=== PATIENT | female | born 1990 | race Caucasian/White ===

== ENCOUNTER 2020-08-13 12:16 | Inpatient (IN) | payer BC, OTHER ==
[2020-08-13 12:22] VITALS: BMI 29.2
[2020-08-13] MEDS ORDERED: SODIUM CHLORIDE 1,000 ML IV STA (12:35)
[2020-08-13] MEDS ORDERED: ACETAMINOPHEN 1000 MG/100 ML VIAL (NON FORMULARY) IVPB ONE (12:37)
[2020-08-13] MEDS ORDERED: ONDANSETRON 4 MG/2 ML VIAL IVPUSH ONE (12:39)
[2020-08-13] MEDS ORDERED: ACETAMINOPHEN INJECTION 100 ML IVPB ONE (12:41)
[2020-08-13 13:12] LABS: BASO % 0.6 % (0-2.0); EOS % 1.5 % (0-4.5); HEMATOCRIT 37.8 % (32.4-45.2); LYMPH % 21.4 % (8-40); MCH 25.7 pg (25.7-33.7); MCHC 31.7 g/dl (32.0-36.0); MEAN CELL VOLUME 81.2 fl (80-96); MEAN PLT VOLUME 8.9 fl (7.5-11.1); MONO % 4.6 % (3.8-10.2); NEUT % 71.9 % (42.8-82.8); PLATELET COUNT 308 K/MM3 (134-434); RBC 4.66 M/mm3 (3.60-5.2); RDW 15.9 % (11.6-15.6); WHITE BLOOD COUNT 8.5 K/mm3 (4.0-10.0)
[2020-08-13 13:15] LABS: EPI CELLS 16 /uL (0-25.1); HYALINE CASTS 2 /uL (0-3.1); PH,URINE 5.5 (5.0-8.0); URINE APPEARANCE CLEAR; URINE BACTERIA 1330 /uL (0-1359); URINE BILIRUBIN NEGATIVE (NEGATIVE); URINE COLOR YELLOW; URINE GLUCOSE (UA) NEGATIVE (NEGATIVE); URINE KETONE NEGATIVE (NEGATIVE); URINE LEUK ESTERASE NEGATIVE (NEGATIVE); URINE NITRITE NEGATIVE (NEGATIVE); URINE PROTEIN NEGATIVE (NEGATIVE); URINE RBC 219 /uL (0-23.9); URINE UROBILINOGEN 0.2 mg/dL (0.2-1.0); URINE WBC 19 /uL (0-25.8)
[2020-08-13 13:31] LABS: CHLORIDE 107 mmol/L (98-107); POTASSIUM 4.6 mmol/L (3.5-5.1); SODIUM 139 mmol/L (136-145)
[2020-08-13] MEDS ORDERED: ONDANSETRON 4 MG/2 ML VIAL ONE (13:32)
[2020-08-13 13:34] LABS: ALBUMIN 3.6 g/dl (3.4-5.0); ANION GAP 4 MMOL/L (8-16); CALCIUM 9.3 mg/dL (8.5-10.1); CO2 28 mmol/L (21-32); GLUCOSE,RANDOM 106 mg/dL (74-106); LIPASE 141 U/L (73-393)
[2020-08-13 13:37] LABS: CREATININE 0.8 mg/dL (0.55-1.3); SGOT/AST 22 U/L (15-37); SGPT/ALT 19 U/L (13-61)
[2020-08-13 13:39] LABS: BILIRUBIN,TOTAL 0.4 mg/dL (0.2-1); TOT PROT 7.4 g/dl (6.4-8.2)
[2020-08-13 13:40] LABS: ALK PHOS 62 U/L (45-117)
[2020-08-13] MEDS ORDERED: CEFTRIAXONE 1 GM/50 ML BAG ONE (15:18)
[2020-08-13] MEDS ORDERED: CEFTRIAXONE 1,000 MG in DEXTROSE 5%-WATER - 50 ML IVPB ONE (15:24)
[2020-08-13] MEDS: CEFTRIAXONE 1 MG in DEXTROSE 5%-WATER - 50 ML IVPB ONE ×2 (15:31→15:32)
[2020-08-13] MEDS: SODIUM CHLORIDE 1,000 ML IV SCH (16:23)
[2020-08-13] MEDS ORDERED: oxyCODONE HCL 5 MG TABLET PO PRN (22:15)
[2020-08-13] MEDS ORDERED: ACETAMINOPHEN 325 MG TABLET (FP) PO PRN (22:15)
[2020-08-14] MEDS ORDERED: ENOXAPARIN NA (PORCINE) 40 MG/0.4 ML DISP.SYRIN SQ SCH (10:00)
[2020-08-14] MEDS: CEFTRIAXONE 1 GM in DEXTROSE 5%-WATER - 50 ML IVPB SCH ×2 (10:29→11:07)
[2020-08-14] MEDS: SODIUM CHLORIDE 1,000 ML IV SCH (10:30)
[2020-08-14 16:03] VITALS: BP 114/65; PULSE 58; TEMP 98.4
== END 2020-08-14 18:57 | disposition home or self-care (01) | DRG 694 ==
LOC: SUPCPDRO 12:16 → JER 12:16 → JERBED 15:10 → J6WEST-2 21:18
PROVIDERS: ADMIT Internal Medicine; ATTEND Internal Medicine
DX: N13.2 Hydronephrosis with renal and ureteral calculous obstruction (principal); E78.5 Hyperlipidemia, unspecified
CPT/HCPCS: 36415; 71045-TC-FY; 74176-TC; 80053; 81003; 83690; 84484; 84703; 85025; 87086; 93005; 93010; 99285-25; C9803; J0131; U0003

== ENCOUNTER 2022-05-11 20:22 | Emergency (ER) | payer BC, OTHER ==
[2022-05-11 20:32] VITALS: BP 123/73; PULSE 101; RESP 19; TEMP 97.8; BMI 27.4
[2022-05-11] MEDS ORDERED: ONDANSETRON 4 MG/2 ML VIAL IVPUSH ONE (21:04)
[2022-05-11] MEDS ORDERED: KETOROLAC TROMETHAMINE 30 MG/1 ML VIAL IVPUSH ONE (21:04)
[2022-05-11] MEDS ORDERED: ONDANSETRON 4 MG/2 ML VIAL ONE (21:10)
[2022-05-11] MEDS ORDERED: KETOROLAC TROMETHAMINE 30 MG/1 ML VIAL ONE (21:10)
[2022-05-11 21:31] LABS: BASO % 0.8 % (0-2.0); EOS % 2.4 % (0-4.5); HEMATOCRIT 36.7 % (32.4-45.2); HEMOGLOBIN 12.4 GM/dL (10.7-15.3); LYMPH % 23.7 % (8-40); MCH 27.5 pg (25.7-33.7); MCHC 33.7 g/dl (32.0-36.0); MEAN CELL VOLUME 81.6 fl (80-96); MEAN PLT VOLUME 8.7 fl (7.5-11.1); MONO % 5.1 % (3.8-10.2); PLATELET COUNT 274 10^3/uL (134-434); RDW 13.8 % (11.6-15.6); WHITE BLOOD COUNT 10.9 K/mm3 (4.0-10.0)
[2022-05-11 21:36] LABS: EPI CELLS >36 /uL (0-25.1); HYALINE CASTS 0 /uL (0-3.1); PH,URINE 6.5 (5.0-8.0); URINE APPEARANCE CLEAR; URINE BACTERIA 74 /uL (0-1359); URINE BILIRUBIN NEGATIVE (NEGATIVE); URINE COLOR YELLOW; URINE GLUCOSE (UA) NEGATIVE (NEGATIVE); URINE KETONE NEGATIVE (NEGATIVE); URINE LEUK ESTERASE 2+ (NEGATIVE); URINE NITRITE NEGATIVE (NEGATIVE); URINE PROTEIN TRACE (NEGATIVE); URINE RBC 78 /uL (0-23.9); URINE UROBILINOGEN 0.2 mg/dL (0.2-1.0); URINE WBC 227 /uL (0-25.8)
[2022-05-11 21:51] LABS: ALBUMIN 3.7 g/dl (3.4-5.0); CALCIUM 9.2 mg/dL (8.5-10.1)
[2022-05-11 21:52] LABS: BLOOD UREA NITROGEN 12.6 mg/dL (7-18)
[2022-05-11 21:54] LABS: CREATININE 0.7 mg/dL (0.55-1.3)
[2022-05-11 21:56] LABS: BILIRUBIN,TOTAL 0.3 mg/dL (0.2-1); TOT PROT 7.4 g/dl (6.4-8.2)
[2022-05-11] MEDS ORDERED: MAGNESIUM SULF 50% (8.12 MEQ/2 ML-1 GM VIAL) IVPB ONE (22:18)
[2022-05-11] MEDS ORDERED: POTASSIUM CHLORIDE TABS 20 MEQ TABLET.ER (FP) PO ONE ×2 (22:19→22:48)
[2022-05-11] MEDS ORDERED: MAGNESIUM SULFATE IN WATER 2 GM/50 ML IVPB IVPB ONE (22:36)
== END 2022-05-11 23:18 | disposition home or self-care (01) ==
LOC: JER 20:22
PROC: 3E033GC Introduction of Other Therapeutic Substance into Peripheral Vein, Percutaneous Approach (ICD-10-PCS; principal; 2022-05-11)
DX: N39.0 Urinary tract infection, site not specified (principal); N23 Unspecified renal colic
CPT/HCPCS: 36415; 74176-TC; 80053; 81003; 83690; 84703; 85025; 87086; 87186; 99285-25